=== PATIENT | female | born 1950 ===

== ENCOUNTER 2024-03-10 13:12 | Outpatient (CLI) | payer OTHER | END 2024-03-10 13:22 | disposition home or self-care (01) | LOC: MAMO-SONO 13:12 | PROVIDERS: ATTEND Surgery | DX: N60.12 Diffuse cystic mastopathy of left breast (principal); R92.1 Mammographic calcification found on diagnostic imaging of breast; D48.62 Neoplasm of uncertain behavior of left breast ==